=== PATIENT | male | born 1965 | race Caucasian/White ===

== ENCOUNTER 2019-01-03 12:22 | Emergency (ER) | payer OTHER ==
[2019-01-03] MEDS ORDERED: Sodium Chloride 0.9% 10 ML Syringe FLUSH PRN (12:31)
[2019-01-03] MEDS ORDERED: Ondansetron 4 MG/2 ML SDV IVPUSH ONE (12:31)
[2019-01-03] MEDS ORDERED: Sodium Chloride 0.9% 1,000 ML IV ONE ×2 (12:31→13:57)
[2019-01-03] MEDS ORDERED: Sodium Chloride 0.9% 2.5 ML Syringe FLUSH PRN (12:31)
--- NOTE | 2019-01-03 12:34 | EDM.PDOC ---
ED HPI GENERAL MEDICAL PROBLEM - General Chief Complaint: Drug or Alcohol Abuse Stated Complaint: WITHDRAWALS Time Seen by Provider: 01/03/19 12:27 Source of Information: Reports: Patient History Limitations: Reports: No Limitations - History of Present Illness INITIAL COMMENTS - FREE TEXT/NARRATIVE: History of present illness: []Patient arrived to [place] from [place] a week ago and usually buys oxymorphone off the street for chronic neck pain and has run out. He now wishes to get off all opiates. He took his last pill at 7 AM yesterday and now has vomiting and diarrhea. He is requesting to go through detox in order to keep his job. Review of systems: As per history of present illness and below otherwise all systems reviewed and negative. Past medical history: As per history of present illness and as reviewed below otherwise noncontributory. Surgical history: As per history of present illness and as reviewed below otherwise noncontributory. Social history: No reported history of drug or alcohol abuse. Family history: As per history of present illness and as reviewed below otherwise noncontributory. Physical exam: General: Well developed, well nourished in NAD HEENT: Atraumatic, normocephalic, pupils reactive, negative for conjunctival pallor or scleral icterus, mucous membranes moist, throat clear, neck supple, nontender, trachea midline. Lungs: Clear to auscultation, breath sounds equal bilaterally, chest nontender. Heart: S1S2, regular, negative for clicks, rubs, or JVD. Abdomen: NABS, Soft, nondistended, nontender. Negative for masses or hepatosplenomegaly. Negative for costovertebral tenderness. Pelvis: Stable nontender. Genitourinary: Deferred. Rectal: Deferred. Extremities: Atraumatic, negative for cords or calf pain. Neurovascular unremarkable. Neuro: Awake, alert, oriented. Cranial nerves II through XII unremarkable. Cerebellum unremarkable. Motor and sensory unremarkable throughout. Exam nonfocal. Skin:warm and dry Diagnostics: CBC, chemistry, drug screen Therapeutics: IV hydrated, Zofran and Toradol ED Course: Consulted Dr. Greenwood-able to admit for withdrawal Consulted Nelly Canales who will not accept him for suggested that he should go to the methadone clinic in [place] as they do daily intakes. Impression: Opioid withdrawal Prescriptions: Zofran Plan: follow up with Dr. Chisholm Definitive disposition and diagnosis as appropriate pending reevaluation and review of above. Generalized Pain Score (Numeric/FACES): 10 - Related Data Allergies Allergy/AdvReac Type Severity Reaction Status Date / Time No Known Allergies Allergy Verified 01/03/19 12:25 Home Meds: Home Meds Ondansetron [Zofran ODT] 4 mg PO Q6H PRN #20 tab.dis 01/03/19 [Rx] Oxymorphone HCl [Oxymorphone] 200 mg PO DAILY PRN 01/03/19 [History] Sertraline HCl [Zoloft] 150 mg PO DAILY 01/03/19 [History] Past Medical History Musculoskeletal History: Reports: Back Pain, Chronic - Infectious Disease History Infectious Disease History: Reports: None Social & Family History - Family History Family Medical History: Noncontributory - Tobacco Use Smoking Status *Q: Unknown Ever Smoked - Caffeine Use Caffeine Use: Reports: None - Recreational Drug Use Recreational Drug Use: No ED ROS GENERAL - Review of Systems Review Of Systems: See Below ED EXAM, GENERAL - Physical Exam Exam: See Below Course - Vital Signs Last Recorded V/S: Last Vital Signs Temp 95.3 F L 01/03/19 12:26 Pulse 58 L 01/03/19 12:26 Resp 20 01/03/19 12:26 BP 162/81 H 01/03/19 12:26 Pulse Ox 99 01/03/19 12:26 - Orders/Labs/Meds Orders: Active Orders 24 hr Category Date Time Status Sodium Chloride 0.9% [Saline Flush] Med 01/03/19 12:31 Active 10 ml FLUSH ASDIRECTED PRN Sodium Chloride 0.9% [Saline Flush] Med 01/03/19 12:31 Active 2.5 ml FLUSH ASDIRECTED PRN Saline Lock Insert [OM.PC] Stat Oth 01/03/19 12:31 Ordered Medication Orders Sodium Chloride (Saline Flush) 10 ml FLUSH ASDIRECTED PRN PRN Reason: Keep Vein Open Last Admin: 01/03/19 12:41 Dose: 10 ml Sodium Chloride (Saline Flush) 2.5 ml FLUSH ASDIRECTED PRN PRN Reason: Keep Vein Open Last Admin: 01/03/19 12:41 Dose: 2.5 ml Labs: Laboratory Tests 01/03/19 01/03/19 01/03/19 Range/Units 12:32 12:40 12:40 WBC 11.34 H (4.0-11.0) K/uL RBC 5.11 (4.50-5.90) M/uL Hgb 14.8 (13.0-17.0) g/dL Hct 43.3 (38.0-50.0) % MCV 84.7 (80.0-98.0) fL MCH 29.0 (27.0-32.0) pg MCHC 34.2 (31.0-37.0) g/dL RDW Std Deviation 40.7 (28.0-62.0) fl RDW Coeff of Kayden 13 (11.0-15.0) % Plt Count 478 H (150-400) K/uL MPV 10.10 (7.40-12.00) fL Neut % (Auto) 82.7 H (48.0-80.0) % Lymph % (Auto) 10.4 L (16.0-40.0) % [place] % (Auto) 6.0 (0.0-15.0) % Eos % (Auto) 0.4 (0.0-7.0) % Baso % (Auto) 0.5 (0.0-1.5) % Neut # (Auto) 9.4 H (1.4-5.7) K/uL Lymph # (Auto) 1.2 (0.6-2.4) K/uL [place] # (Auto) 0.7 (0.0-0.8) K/uL Eos # (Auto) 0.0 (0.0-0.7) K/uL Baso # (Auto) 0.1 (0.0-0.1) K/uL Nucleated RBC % 0.0 /100WBC Nucleated RBCs # 0 K/uL Sodium 140 (136-148) mmol/L Potassium 3.4 L (3.5-5.1) mmol/L Chloride 101 (98-107) mmol/L Carbon Dioxide 27.2 (21.0-32.0) mmol/L BUN 15 (7.0-18.0) mg/dL Creatinine 1.0 (0.8-1.3) mg/dL Est Cr Clr Drug Dosing 84.45 mL/min Estimated GFR (MDRD) > 60.0 ml/min Glucose 141 H (74-106) mg/dL Calcium 9.4 (8.5-10.1) mg/dL Total Bilirubin 0.6 (0.2-1.0) mg/dL AST 15 (15-37) IU/L ALT 25 (14-63) IU/L Alkaline Phosphatase 133 H (46-116) U/L Total Protein 8.6 H (6.4-8.2) g/dL Albumin 4.0 (3.4-5.0) g/dL Globulin 4.6 H (2.6-4.0) g/dL Albumin/Globulin Ratio 0.9 (0.9-1.6) Urine Opiates Screen NEGATIVE (NEGATIVE) Ur Oxycodone Screen POSITIVE (NEGATIVE) Urine Methadone Screen NEGATIVE (NEGATIVE) Ur Barbiturates Screen NEGATIVE (NEGATIVE) Ur Phencyclidine Scrn NEGATIVE (NEGATIVE) Ur Amphetamine Screen NEGATIVE (NEGATIVE) U Methamphetamines Scrn NEGATIVE (NEGATIVE) U Benzodiazepines Scrn NEGATIVE (NEGATIVE) U Cocaine Metab Screen NEGATIVE (NEGATIVE) U Marijuana (THC) Screen NEGATIVE (NEGATIVE) Meds: Medications Generic Name Dose Route Start Last Admin Trade Name Freq PRN Reason Stop Dose Admin Sodium Chloride 10 ml 01/03/19 12:31 01/03/19 12:41 Saline Flush FLUSH 10 ml ASDIRECTED PRN Administration Keep Vein Open Sodium Chloride 2.5 ml 01/03/19 12:31 01/03/19 12:41 Saline Flush FLUSH 2.5 ml ASDIRECTED PRN Administration Keep Vein Open Discontinued Medications Generic Name Dose Route Start Last Admin Trade Name Freq PRN Reason Stop Dose Admin Sodium Chloride 1,000 mls @ 999 mls/hr 01/03/19 12:31 01/03/19 12:41 Normal Saline IV 01/03/19 13:31 999 mls/hr .Bolus ONE Administration Sodium Chloride 1,000 mls @ 999 mls/hr 01/03/19 13:57 Normal Saline IV 01/03/19 14:57 .Bolus ONE Ketorolac Tromethamine 30 mg 01/03/19 12:45 01/03/19 12:51 Toradol IVPUSH 01/03/19 12:46 30 mg ONETIME ONE Administration Lorazepam 1 mg 01/03/19 13:00 01/03/19 13:15 Ativan IVPUSH 01/03/19 13:01 1 mg ONETIME ONE Administration Ondansetron HCl 4 mg 01/03/19 12:31 01/03/19 12:41 Zofran IVPUSH 01/03/19 12:32 4 mg ONETIME ONE Administration Departure - Departure Time of Disposition: 13:38 Disposition: Home, Self-Care 01 Condition: Good Clinical Impression: Opioid withdrawal - Discharge Information *PRESCRIPTION DRUG MONITORING PROGRAM REVIEWED*: No *COPY OF PRESCRIPTION DRUG MONITORING REPORT IN PATIENT SUDHAKAR: No Prescriptions: Ondansetron [Zofran ODT] 4 mg PO Q6H PRN #20 tab.dis PRN Reason: Nausea Referrals: PCP,None [Primary Care Provider] - Forms: ED Department Discharge Additional Instructions: The following information is given to patients seen in the emergency department who are being discharged to home. This information is to outline your options for follow-up care. We provide all patients seen in our emergency department with a follow-up referral. The need for follow-up, as well as the timing and circumstances, are variable depending upon the specifics of your emergency department visit. If you don't have a primary care physician on staff, we will provide you with a referral. We always advise you to contact your personal physician following an emergency department visit to inform them of the circumstance of the visit and for follow-up with them and/or the need for any referrals to a consulting specialist. The emergency department will also refer you to a specialist when appropriate. This referral assures that you have the opportunity for follow-up care with a specialist. All of these measure are taken in an effort to provide you with optimal care, which includes your follow-up. Under all circumstances we always encourage you to contact your private physician who remains a resource for coordinating your care. When calling for follow-up care, please make the office aware that this follow-up is from your recent emergency room visit. If for any reason you are refused follow-up, please contact the [facility] Emergency Department at and asked to speak to the emergency department charge nurse. Take meds as directed, follow up with your primary care physician, return to ER if symptoms worsen or change. [facility] - Pain Management [address] [place] [id number] - My Orders Last 24 Hours: My Active Orders 01/03/19 12:31 Sodium Chloride 0.9% [Saline Flush] 10 ml FLUSH ASDIRECTED PRN Sodium Chloride 0.9% [Saline Flush] 2.5 ml FLUSH ASDIRECTED PRN Saline Lock Insert [OM.PC] Stat - Assessment/Plan Last 24 Hours: My Active Orders 01/03/19 12:31 Sodium Chloride 0.9% [Saline Flush] 10 ml FLUSH ASDIRECTED PRN Sodium Chloride 0.9% [Saline Flush] 2.5 ml FLUSH ASDIRECTED PRN Saline Lock Insert [OM.PC] Stat
[2019-01-03] MEDS ORDERED: Ketorolac 30 MG/ML SDV IVPUSH ONE (12:45)
[2019-01-03] MEDS ORDERED: LORazepam 2 MG/ML SDV IVPUSH ONE (13:00)
[2019-01-03 13:56] LABS: BLOOD UREA NITROGEN,BUN 15 mg/dL (7.0-18.0); CARBON DIOXIDE,CO2 27.2 mmol/L (21.0-32.0); CHLORIDE,CL 101 mmol/L (98-107); GLUCOSE RANDOM 141 mg/dL (74-106); POTASSIUM,K 3.4 mmol/L (3.5-5.1); SODIUM,NA 140 mmol/L (136-148)
== END 2019-01-03 14:22 | disposition home or self-care (01) ==
LOC: MW.ED 12:22
DX: F11.23 Opioid dependence with withdrawal (principal); Z79.899 Other long term (current) drug therapy
CPT/HCPCS: 36415; 80053; 80305; 85025; 96361; 96374; 96375; 99284; J1885; J2060; J2405; J7040

== ENCOUNTER 2019-02-27 20:33 | Emergency (ER) | payer OTHER ==
[2019-02-27] MEDS ORDERED: Sodium Chloride 0.9% 10 ML Syringe FLUSH PRN (20:42)
[2019-02-27] MEDS ORDERED: Sodium Chloride 0.9% 2.5 ML Syringe FLUSH PRN (20:42)
[2019-02-27] MEDS ORDERED: Aspirin 81 MG Tab.Chew PO ONE (20:42)
[2019-02-27] MEDS ORDERED: Albuterol/Ipratropium 3.0-0.5 MG/3 ML Neb Soln NEB ONE (20:55)
--- NOTE | 2019-02-27 21:05 | EDM.PDOC ---
<Shweta Phillips - Last Filed: 02/27/19 22:37> ED HPI GENERAL MEDICAL PROBLEM - General Chief Complaint: Chest Pain Stated Complaint: SOB, CHEST PAIN Time Seen by Provider: 02/27/19 20:42 - History of Present Illness INITIAL COMMENTS - FREE TEXT/NARRATIVE: This is Dr. Phillips dictating an addendum note as I was asked to follow-up the CTA of the chest and disposition the patient pending those results. The CTA scan results have been reviewed and they are not demonstrating any acute abnormalities. The patient was spoken to by the nurse practitioner and he is comfortable with discharge home and follow-up in the clinic. - Related Data Allergies Allergy/AdvReac Type Severity Reaction Status Date / Time No Known Allergies Allergy Verified 02/27/19 20:39 Home Meds: Home Meds Sertraline HCl [Zoloft] 150 mg PO DAILY 01/03/19 [History] Buprenorphine HCl/Naloxone HCl [Suboxone 4 mg-1 mg Sl Film] 16 mg PO DAILY 02/27 [History] ED ROS GENERAL - Review of Systems Review Of Systems: ROS reveals no pertinent complaints other than HPI. Course - Vital Signs Last Recorded V/S: Last Vital Signs Temp 97.0 F 02/27/19 22:45 Pulse 84 02/27/19 22:45 Resp 18 02/27/19 22:45 BP 118/74 02/27/19 22:45 Pulse Ox 95 02/27/19 22:45 - Orders/Labs/Meds Orders: Active Orders 24 hr Category Date Time Status RT Aerosol Therapy [RC] ASDIRECTED Care 02/27/19 20:55 Active Saline Lock Insert [OM.PC] Stat Oth 02/27/19 20:42 Ordered Labs: Laboratory Tests 02/27/19 02/27/19 02/27/19 Range/Units 20:40 20:40 20:50 WBC 7.98 (4.0-11.0) K/uL RBC 4.32 L (4.50-5.90) M/uL Hgb 12.2 L (13.0-17.0) g/dL Hct 36.4 L (38.0-50.0) % MCV 84.3 (80.0-98.0) fL MCH 28.2 (27.0-32.0) pg MCHC 33.5 (31.0-37.0) g/dL RDW Std Deviation 44.1 (28.0-62.0) fl RDW Coeff of Kayden 14 (11.0-15.0) % Plt Count 319 (150-400) K/uL MPV 9.60 (7.40-12.00) fL Neut % (Auto) 65.7 (48.0-80.0) % Lymph % (Auto) 19.9 (16.0-40.0) % [place] % (Auto) 8.6 (0.0-15.0) % Eos % (Auto) 4.9 (0.0-7.0) % Baso % (Auto) 0.9 (0.0-1.5) % Neut # (Auto) 5.2 (1.4-5.7) K/uL Lymph # (Auto) 1.6 (0.6-2.4) K/uL [place] # (Auto) 0.7 (0.0-0.8) K/uL Eos # (Auto) 0.4 (0.0-0.7) K/uL Baso # (Auto) 0.1 (0.0-0.1) K/uL Nucleated RBC % 0.0 /100WBC Nucleated RBCs # 0 K/uL D-Dimer, Quantitative 0.65 H (0.0-0.50) mg/L FEU Sodium 141 (136-148) mmol/L Potassium 3.6 (3.5-5.1) mmol/L Chloride 104 (98-107) mmol/L Carbon Dioxide 28.9 (21.0-32.0) mmol/L BUN 18 (7.0-18.0) mg/dL Creatinine 1.1 (0.8-1.3) mg/dL Est Cr Clr Drug Dosing 81.77 mL/min Estimated GFR (MDRD) > 60.0 ml/min Glucose 101 (74-106) mg/dL Calcium 8.5 (8.5-10.1) mg/dL Total Bilirubin 0.2 (0.2-1.0) mg/dL AST 20 (15-37) IU/L ALT 34 (14-63) IU/L Alkaline Phosphatase 93 (46-116) U/L Troponin I < 0.050 (0.000-0.056) ng/mL Total Protein 7.4 (6.4-8.2) g/dL Albumin 3.5 (3.4-5.0) g/dL Globulin 3.9 (2.6-4.0) g/dL Albumin/Globulin Ratio 0.9 (0.9-1.6) Meds: Medications Discontinued Medications Generic Name Dose Route Start Last Admin Trade Name Freq PRN Reason Stop Dose Admin Albuterol/Ipratropium 3 ml 02/27/19 20:55 02/27/19 21:07 Duoneb 3.0-0.5 Mg/3 Ml NEB 02/27/19 20:56 3 ml ONETIME ONE Administration Aspirin 324 mg 02/27/19 20:42 02/27/19 20:48 Aspirin PO 02/27/19 20:43 324 mg ONETIME ONE Administration Sodium Chloride 1,000 mls @ 999 mls/hr 02/27/19 21:26 02/27/19 21:31 Normal Saline IV 02/27/19 22:26 999 mls/hr STAT ONE Administration Iopamidol 50 ml 02/27/19 22:11 02/27/19 22:12 Isovue Multipack-370 (76%) IVPUSH 02/27/19 22:12 50 ml ONETIME STA Administration Sodium Chloride 10 ml 02/27/19 20:42 Saline Flush FLUSH ASDIRECTED PRN Keep Vein Open Sodium Chloride 2.5 ml 02/27/19 20:42 Saline Flush FLUSH ASDIRECTED PRN Keep Vein Open Departure - Departure Time of Disposition: 22:37 Disposition: Home, Self-Care 01 Reason for Transfer *Q: Primary PCI Indicated Condition: Good Clinical Impression: Nonspecific chest pain Dyspnea Qualifiers: Dyspnea type: unspecified Qualified Code(s): R06.00 - Dyspnea, unspecified Instructions: Shortness of Breath, Adult, [id number], Nonspecific Chest Pain , [id number] Referrals: PCP,None [Primary Care Provider] - Forms: ED Department Discharge Additional Instructions: The following information is given to patients seen in the emergency department who are being discharged to home. This information is to outline your options for follow-up care. We provide all patients seen in our emergency department with a follow-up referral. The need for follow-up, as well as the timing and circumstances, are variable depending upon the specifics of your emergency department visit. If you don't have a primary care physician on staff, we will provide you with a referral. We always advise you to contact your personal physician following an emergency department visit to inform them of the circumstance of the visit and for follow-up with them and/or the need for any referrals to a consulting specialist. The emergency department will also refer you to a specialist when appropriate. This referral assures that you have the opportunity for follow-up care with a specialist. All of these measure are taken in an effort to provide you with optimal care, which includes your follow-up. Under all circumstances we always encourage you to contact your private physician who remains a resource for coordinating your care. When calling for follow-up care, please make the office aware that this follow-up is from your recent emergency room visit. If for any reason you are refused follow-up, please contact the [facility] Emergency Department at and asked to speak to the emergency department charge nurse. [facility] [address] [place] [id number] [place] [address] 1. Start a Baby Aspirin 81mg once daily 2. Please use Tylenol and/or Ibuprofen as needed for pain and fever management. 3. Please follow up with your primary care provider. Return to the ED as needed as discussed. - My Orders Last 24 Hours: My Active Orders 02/27/19 20:42 Saline Lock Insert [OM.PC] Stat 02/27/19 20:55 RT Aerosol Therapy [RC] ASDIRECTED - Assessment/Plan Last 24 Hours: My Active Orders 02/27/19 20:42 Saline Lock Insert [OM.PC] Stat 02/27/19 20:55 RT Aerosol Therapy [RC] ASDIRECTED <Brenda Franco - Last Filed: 02/28/19 10:02> ED HPI GENERAL MEDICAL PROBLEM - General Source of Information: Reports: Patient History Limitations: Reports: No Limitations - History of Present Illness INITIAL COMMENTS - FREE TEXT/NARRATIVE: HISTORY AND PHYSICAL: History of present illness: Patient is a 53-year-old male who presents to the emergency room with complaints of shortness of breath and chest pain. Patient states approximately 3 weeks ago he was started on Suboxone (for opioid addiction) and around that time started noticing some shortness of breath. He describes it as feeling like he states taking shallow breaths and not able to fully catch his breath per usual. He states nothing makes the symptoms better or worse. Over the past 3 days he has had a generalized midsternal chest pain that does not radiate. He states nothing makes the chest pain better or worse but just "notices it". Patient denies any fever, chills, headache, change in vision, syncope or near syncope. Denies any back pain or cough. Denies any abdominal pain, nausea, vomiting, diarrhea, constipation or dysuria. Has not noted any blood in urine or stool. Patient has been eating and drinking appropriately. Denies any drug or alcohol abuse Review of systems: As per history of present illness and below otherwise all systems reviewed and negative. Past medical history: As per history of present illness and as reviewed below otherwise noncontributory. Surgical history: As per history of present illness and as reviewed below otherwise noncontributory. Social history: See social history for further information Family history: As per history of present illness and as reviewed below otherwise noncontributory. Physical exam: General: Well-developed and well-nourished 53-year-old male. Alert and orientated. Nontoxic appearing and in no acute distress. HEENT: Atraumatic, normocephalic, pupils equal and reactive bilaterally, negative for conjunctival pallor or scleral icterus, mucous membranes moist, nontender, trachea midline. No drooling or trismus noted. No meningeal signs. No hot potato voice noted. Lungs: Clear to auscultation, breath sounds equal bilaterally, chest nontender. Heart: S1S2, regular rate and rhythm without overt murmur Abdomen: Soft, nondistended, nontender. Negative for masses or hepatosplenomegaly. Negative for costovertebral tenderness. Pelvis: Stable nontender. Skin: Intact, warm, dry. No lesions or rashes noted. Extremities: Atraumatic, moves all extremities per self without difficulty or deficits, negative for cords or calf pain. Neurovascular unremarkable. Neuro: Awake, alert, oriented. Cranial nerves II through XII unremarkable. Cerebellum unremarkable. Motor and sensory unremarkable throughout. Exam nonfocal. Notes: Chest x-ray is unremarkable. Lab work is unremarkable with the exception of slightly elevated D.dimer; will do a CT chest. Upon entering the room the patient is asleep. When I awoke him he did appear somewhat anxious. States that he had "an episode where he couldn't catch my breath". Which when I witnessed what he was talking about it appeared that it could be anxiety related. I did discuss with patient the labs, EKG and chest x- ray results and need for CT chest to r/o PE. We discussed admission versus discharged home if his CT is normal. He states he would like to be discharged to home with follow-up with his primary care provider. He states he has not had any chest pain while here. Vital signs remain stable. Waiting for CT of chest results; Dr Phillips will follow. Diagnostics: CBC, CMP, D.Dimer, Troponin, EKG, CXR Therapeutics: IV fluids, ASA, Duo-Neb Impression: Dyspnea Nonspecific chest pain Plan: 1. Start a Baby Aspirin 81mg once daily 2. Please use Tylenol and/or Ibuprofen as needed for pain and fever management. 3. Please follow up with your primary care provider. Return to the ED as needed as discussed. Definitive disposition and diagnosis as appropriate pending reevaluation and review of above. Duration: Day(s):, Week(s): chest Pain Score (Numeric/FACES): 6 Past Medical History Musculoskeletal History: Reports: Back Pain, Chronic Psychiatric History: Reports: Anxiety, Depression - Infectious Disease History Infectious Disease History: Reports: None - Past Surgical History HEENT Surgical History: Reports: Oral Surgery Social & Family History - Family History Family Medical History: Noncontributory - Tobacco Use Smoking Status *Q: Never Smoker - Caffeine Use Caffeine Use: Reports: None - Recreational Drug Use Recreational Drug Use: No ED ROS GENERAL - Review of Systems Review Of Systems: ROS reveals no pertinent complaints other than HPI. ED EXAM, GENERAL - Physical Exam Exam: See Below (See dictation)
[2019-02-27 21:16] LABS: BLOOD UREA NITROGEN,BUN 18 mg/dL (7.0-18.0); CARBON DIOXIDE,CO2 28.9 mmol/L (21.0-32.0); CHLORIDE,CL 104 mmol/L (98-107); GLUCOSE RANDOM 101 mg/dL (74-106); POTASSIUM,K 3.6 mmol/L (3.5-5.1); SODIUM,NA 141 mmol/L (136-148)
--- NOTE | 2019-02-27 21:23 | CR ---
Indication: Chest pain. Shortness breath. Technique: A single AP portable view of the chest was obtained. Comparison: None Findings: The heart is normal in size. The lungs are clear. No infiltrate, pleural effusion, or pneumothorax is identified. Impression: No acute cardiopulmonary process. Dictated by Lina Powers MD @ Feb 27 2019 9:21PM Signed by Dr. Lina Powers @ Feb 27 2019 9:22PM
[2019-02-27] MEDS ORDERED: Sodium Chloride 0.9% 1,000 ML IV ONE (21:26)
[2019-02-27] MEDS ORDERED: Iopamidol 755 MG/ML 500 ML Multipack Bottle IVPUSH STA (22:11)
--- NOTE | 2019-02-27 22:33 | CT ---
INDICATION: Dyspnea, elevated D-dimer COMPARISON: None TECHNIQUE: Contrast enhanced axial CT imaging through the chest, optimized for assessment of the pulmonary arterial tree. 50 mL Isovue 370 contrast agent was administered intravenously. Sagittal and coronal reconstructions are provided. FINDINGS: There is adequate opacification of the pulmonary arterial tree without evidence of thromboembolism. There is normal caliber of the main pulmonary artery. The heart is normal in size. There is no pericardial effusion. There is normal caliber of the thoracic aorta. There is no mediastinal lymphadenopathy. The lungs are clear. There is no pleural effusion or pneumothorax. The thoracic osseous structures are unremarkable. ACDF changes are noted in the lower cervical spine. No significant abnormality is demonstrated in the visualized upper abdomen. IMPRESSION: No evidence of pulmonary thromboembolism or other acute intrathoracic process. Please note that all CT scans at this facility use dose modulation, iterative reconstruction, and/or weight-based dosing when appropriate to reduce radiation dose to as low as reasonably achievable. Dictated by Jovani Fernandes MD @ Feb 27 2019 10:20PM Signed by Dr. Jovani Fernandes @ Feb 27 2019 10:32PM
== END 2019-02-27 22:45 | disposition home or self-care (01) ==
LOC: MW.ED 20:33
DX: R07.9 Chest pain, unspecified (principal); R06.02 Shortness of breath
CPT/HCPCS: 36415; 71045; 71275; 80053; 84484; 85025; 85379; 93005; 94640; 96360; 99285; A9270; J7040; Q9967; J7620-GY

== ENCOUNTER 2019-03-29 13:36 | Emergency (ER) | payer OTHER ==
--- NOTE | 2019-03-29 14:13 | EDM.PDOC ---
<Margie Lopez - Last Filed: 03/29/19 14:56> ED HPI GENERAL MEDICAL PROBLEM - General Chief Complaint: General Stated Complaint: SWOLLAN FROM THE WAIST DOWN Time Seen by Provider: 03/29/19 14:13 Source of Information: Reports: Patient History Limitations: Reports: No Limitations - History of Present Illness INITIAL COMMENTS - FREE TEXT/NARRATIVE: HISTORY AND PHYSICAL: History of present illness: Patient is a 53-year-old male presents to the ED with complaint lower extremity swelling. He states he is having swelling and pain in both legs for the past few days. He states his skin is very itchy and he is scratching his skin raw. He denies chest pain, shortness of breath, fevers, or chills. Review of systems: As per history of present illness and below otherwise all systems reviewed and negative. Past medical history: As per history of present illness and as reviewed below otherwise noncontributory. Surgical history: As per history of present illness and as reviewed below otherwise noncontributory. Social history: No reported history of drug or alcohol abuse. Family history: As per history of present illness and as reviewed below otherwise noncontributory. Physical exam: General: Patient sitting comfortably in no acute distress and nontoxic appearing HEENT: Atraumatic, normocephalic, pupils reactive, negative for conjunctival pallor or scleral icterus, mucous membranes moist, throat clear, neck supple, nontender, trachea midline. No meningeal signs. Lungs: Clear to auscultation, breath sounds equal bilaterally, chest nontender. Heart: S1S2, regular, negative for clicks, rubs, or overt murmur. Abdomen: Soft, nondistended, nontender. Negative for masses or hepatosplenomegaly. Negative for costovertebral tenderness. No rigidity, rebound , guarding. Pelvis: Stable nontender. Genitourinary: Deferred. Rectal: Deferred. Extremities: Atraumatic, negative for cords or calf pain. Neurovascular unremarkable. Neuro: Awake, alert, oriented. Cranial nerves II through XII unremarkable. Cerebellum unremarkable. Motor and sensory unremarkable throughout. Exam nonfocal. Notes: Diagnostics: [] Therapeutics: [] Prescriptions: Impression: [] Plan: [] Definitive disposition and diagnosis as appropriate pending reevaluation and review of above. lower legs Pain Score (Numeric/FACES): 8 - Related Data Allergies Allergy/AdvReac Type Severity Reaction Status Date / Time No Known Allergies Allergy Verified 03/29/19 13:53 Home Meds: Home Meds Sertraline HCl [Zoloft] 150 mg PO DAILY 01/03/19 [History] Buprenorphine HCl/Naloxone HCl [Suboxone 4 mg-1 mg Sl Film] 16 mg PO DAILY 02/27 [History] Past Medical History - Past Health History Medical/Surgical History: Denies Medical/Surgical History Musculoskeletal History: Reports: Back Pain, Chronic Psychiatric History: Reports: Anxiety, Depression - Infectious Disease History Infectious Disease History: Reports: None - Past Surgical History HEENT Surgical History: Reports: Oral Surgery Social & Family History - Family History Family Medical History: Noncontributory - Tobacco Use Smoking Status *Q: Never Smoker - Caffeine Use Caffeine Use: Reports: None - Recreational Drug Use Recreational Drug Use: No ED ROS GENERAL - Review of Systems Review Of Systems: Comprehensive ROS is negative, except as noted in HPI. ED EXAM, GENERAL - Physical Exam Exam: See Below (see dictation) Course - Vital Signs Last Recorded V/S: Last Vital Signs Temp 97.3 F 03/29/19 13:50 Pulse 86 03/29/19 13:50 Resp 18 03/29/19 13:50 BP 144/84 H 03/29/19 13:50 Pulse Ox 96 03/29/19 13:50 - Orders/Labs/Meds Meds: Medications Discontinued Medications Generic Name Dose Route Start Last Admin Trade Name Freq PRN Reason Stop Dose Admin Enoxaparin Sodium 100 mg 03/29/19 16:57 Lovenox SUBCUT 03/29/19 16:58 ONETIME ONE Departure - Departure Disposition: Home, Self-Care 01 Clinical Impression: Generalized pruritus Deep venous thrombosis Qualifiers: DVT location: lower extremity Affected thrombotic vein of extremity: femoral Chronicity: acute Laterality: right Qualified Code(s): I82.411 - Acute embolism and thrombosis of right femoral vein - Discharge Information Referrals: PCP,Not In Area [Primary Care Provider] - Forms: ED Department Discharge Additional Instructions: The following information is given to patients seen in the emergency department who are being discharged to home. This information is to outline your options for follow-up care. We provide all patients seen in our emergency department with a follow-up referral. The need for follow-up, as well as the timing and circumstances, are variable depending upon the specifics of your emergency department visit. If you don't have a primary care physician on staff, we will provide you with a referral. We always advise you to contact your personal physician following an emergency department visit to inform them of the circumstance of the visit and for follow-up with them and/or the need for any referrals to a consulting specialist. The emergency department will also refer you to a specialist when appropriate. This referral assures that you have the opportunity for follow-up care with a specialist. All of these measure are taken in an effort to provide you with optimal care, which includes your follow-up. Under all circumstances we always encourage you to contact your private physician who remains a resource for coordinating your care. When calling for follow-up care, please make the office aware that this follow-up is from your recent emergency room visit. If for any reason you are refused follow-up, please contact the [facility] Emergency Department at and asked to speak to the emergency department charge nurse. [facility] [address] [place] [id number] [place] [address] 1. Take medication as prescribed. You can use Tylenol as directed for pain and discomfort. 2. Follow-up with your primary care provider as discussed. Given place on the expedited follow-up list with primary care. 3. Return to the ED as needed and as discussed. <Erin Mckinney - Last Filed: 03/29/19 17:09> ED HPI GENERAL MEDICAL PROBLEM - History of Present Illness INITIAL COMMENTS - FREE TEXT/NARRATIVE: I have assumed care of this patient at 15:30 and agree with the above history and physical exam. Notes: I did call and speak to Dr. Zhang, hospitalist associate professor of economics, about starting Eliquis treatment and he does recommend starting Eliquis without bridging with Lovenox. Patient also does express generalized itching so will give Medrol Dosepak. Patient was placed on expedited follow-up list with primary care provider. Prescriptions: Eliquis Medrol dose pack Add to impression: Deep venous thrombosis, right common femoral Generalized Pruritus Plan: 1. Take medication as prescribed. You can use Tylenol as directed for pain and discomfort. 2. Follow-up with your primary care provider as discussed. Given place on the expedited follow-up list with primary care. 3. Return to the ED as needed and as discussed. Departure - Departure Time of Disposition: 17:06
--- NOTE | 2019-03-29 16:51 | US ---
INDICATION: Bilateral leg swelling and pain TECHNIQUE: : Ultrasound venous duplex lower extremity bilateral. Compression venous exam was performed using bass-scale, color Doppler, and spectral Doppler imaging. COMPARISON: None available FINDINGS: The right common femoral vein demonstrates incomplete compressibility, compatible with a partial DVT, although the industrial machine system technician reports difficulty compressing due to pain. The right superficial femoral vein and popliteal vein are patent and compressible. The visualized portions of the right posterior and anterior tibial veins are patent on Doppler color evaluation, however compressibility is not evaluated. There are curvilinear hypoechoic areas in the region of the compressed left common femoral vein and distal left superficial femoral vein, reported to be artifactual, extravascular by the rooter operator. The proximal to mid left superficial femoral vein and popliteal vein are patent and appear compressible. The visualized portions of the left posterior and anterior tibial veins are patent on Doppler color evaluation, however compressibility is not evaluated. There are several shotty lymph nodes in the right inguinal region. IMPRESSION: Findings compatible with a partial DVT in the right common femoral vein, although there was reported technical difficulty in regional compression due to pain. Hypoechoic foci in the region of the compressed left common femoral and distal superficial femoral veins are reported to be artifactual, extravascular, by the rooter operator, however follow-up evaluation should be considered to re-evaluate these regions and exclude partial DVTs. Shotty right inguinal lymph nodes. The findings were discussed with CHON Mckinney, by phone, on 03/29/2019 at 4:40 p.m.. Dictated by Jose Drummond MD @ 03/29/2019 4:49:33 PM Dictated by: Jose Drummond MD @ 03/29/2019 16:49:40 (Electronically Signed)
[2019-03-29] MEDS ORDERED: Enoxaparin 100 MG/1 ML Syringe SUBCUT ONE (16:57)
== END 2019-03-29 17:35 | disposition home or self-care (01) ==
LOC: MW.ED 13:36
DX: I82.411 Acute embolism and thrombosis of right femoral vein (principal); L29.9 Pruritus, unspecified
CPT/HCPCS: 93970; 93970-26; 99283-25

== ENCOUNTER 2019-09-29 03:50 | Emergency (ER) | payer OTHER ==
[2019-09-29] MEDS ORDERED: Sodium Chloride 0.9% 2.5 ML Syringe FLUSH PRN ×2 (04:08)
--- NOTE | 2019-09-29 04:15 | EDM.PDOC ---
ED HPI GENERAL MEDICAL PROBLEM - General Chief Complaint: Cardiovascular Problem Stated Complaint: LEGS SWOLLEN Time Seen by Provider: 09/29/19 04:45 - History of Present Illness INITIAL COMMENTS - FREE TEXT/NARRATIVE: History of present illness: [Patient presents with a variety of complaints but essentially he is here because his legs have been swelling for the past several weeks he states that he has been sleepwalking at home and that he fell while sleepwalking and now has increasing right ankle pain this happened over 24 hours ago. He did not hit his head he denies any loss of consciousness he just fell while sleepwalking. He has increased ankle and foot pain on the right. He states both legs have been swelling but the right swelling more than left he is on Eliquis for previous blood clots he denies any prior medical problems for last February when he developed a blood clot. Also states he has been short of breath lately he denies any headache no other injuries no other concerns no fever no chills no chest pain nothing makes it better or worse] Review of systems: As per history of present illness and below otherwise all systems reviewed and negative. Past medical history: As per history of present illness and as reviewed below otherwise noncontributory. Surgical history: As per history of present illness and as reviewed below otherwise noncontributory. Social history: No reported history of drug or alcohol abuse. Family history: As per history of present illness and as reviewed below otherwise noncontributory. Physical exam: HEENT: Atraumatic, normocephalic, pupils reactive, negative for conjunctival pallor or scleral icterus, mucous membranes moist, throat clear, neck supple, nontender, trachea midline. Lungs: Clear to auscultation, breath sounds equal bilaterally, chest nontender. Heart: S1S2, regular, negative for clicks, rubs, or JVD. Abdomen: Soft, nondistended, nontender. Negative for masses or hepatosplenomegaly. Negative for costovertebral tenderness. Pelvis: Stable nontender. Genitourinary: Deferred. Rectal: Deferred. Extremities: Atraumatic, negative for cords or calf pain. Neurovascular unremarkable. Leg is more edematous than the left leg both have 2+ edema. Good distal pulse motor and sensation are intact Neuro: Awake, alert, oriented. Cranial nerves II through XII unremarkable. Cerebellum unremarkable. Motor and sensory unremarkable throughout. Exam nonfocal. Diagnostics: [] Therapeutics: [] Impression: Leg swelling and ankle pain. [] Plan: Keep the patient for edema as well as obtaining plain x-rays of the ankle and the foot which are painful since his fall. He will then be reassessed [] Definitive disposition and diagnosis as appropriate pending reevaluation and review of above. Right Ankle Pain Score (Numeric/FACES): 9 - Related Data Allergies Allergy/AdvReac Type Severity Reaction Status Date / Time No Known Allergies Allergy Verified 09/29/19 04:08 Home Meds: Home Meds Sertraline HCl [Zoloft] 150 mg PO DAILY 01/03/19 [History] Buprenorphine HCl/Naloxone HCl [Suboxone 4 mg-1 mg Sl Film] 16 mg PO DAILY 02/27 [History] Apixaban [Eliquis] 5 mg PO DAILY 09/29/19 [History] Furosemide 40 mg PO DAILY 09/29/19 [History] hydrOXYzine HCL [hydrOXYzine] 25 mg PO DAILY 09/29/19 [History] Past Medical History - Past Health History Medical/Surgical History: Denies Medical/Surgical History Musculoskeletal History: Reports: Back Pain, Chronic Psychiatric History: Reports: Anxiety, Depression - Infectious Disease History Infectious Disease History: Reports: None - Past Surgical History HEENT Surgical History: Reports: Oral Surgery Social & Family History - Family History Family Medical History: Noncontributory - Caffeine Use Caffeine Use: Reports: None Review of Systems - Review of Systems Review Of Systems: See Below ED EXAM, GENERAL - Physical Exam Exam: See Below EKG INTERPRETATION EKG Interpretation Comments: EKG is normal sinus rhythm with a rate of 86 bpm normal EKG normal axis no ischemia. Read and interpreted by me Course - Vital Signs Text/Narrative:: One-view portable chest read interpreted by me no acute cardiopulmonary pathology is evident. 2 view right foot read and interpreted by me there is a fracture at the base of the fifth proximal phalanx. 3 view right ankle no acute fracture dislocation is appreciated there is some DJD. Patient's troponin is elevated he has not had any chest pain but more dyspnea on exertion with lower extremity swelling. A CTA of his pulmonary arteries was obtained and waiting for read. At 6:30 AM I discussed the case with Dr. Spencer at [place] they will accept the patient feel he needs to be transferred for cardiology consultation with the potential for Adoption Manager. CTA chest is negative for pulmonary embolus per radiology Last Recorded V/S: Last Vital Signs Temp 35.8 C L 09/29/19 05:15 Pulse 85 09/29/19 05:45 Resp 14 09/29/19 05:45 BP 112/58 L 09/29/19 05:45 Pulse Ox 94 L 09/29/19 05:45 - Orders/Labs/Meds Orders: Active Orders 24 hr Category Date Time Status EKG Documentation Completion [RC] STAT Care 09/29/19 04:08 Active Sodium Chloride 0.9% [Saline Flush] Med 09/29/19 04:08 Active 2.5 ml FLUSH ASDIRECTED PRN Sodium Chloride 0.9% [Saline Flush] Med 09/29/19 04:08 Active 2.5 ml FLUSH ASDIRECTED PRN DME for Discharge [COMM] Stat Oth 09/29/19 06:36 Ordered Saline Lock Insert [OM.PC] Stat Ot 09/29/19 04:08 Ordered Medication Orders Sodium Chloride (Saline Flush) 2.5 ml FLUSH ASDIRECTED PRN PRN Reason: Keep Vein Open Last Admin: 09/29/19 05:00 Dose: 2.5 ml Sodium Chloride (Saline Flush) 2.5 ml FLUSH ASDIRECTED PRN PRN Reason: Keep Vein Open Last Admin: 09/29/19 05:00 Dose: 2.5 ml Labs: Laboratory Tests 09/29/19 09/29/19 09/29/19 Range/Units 04:14 04:14 04:14 WBC 8.63 (4.0-11.0) K/uL RBC 4.34 L (4.50-5.90) M/uL Hgb 11.7 L (13.0-17.0) g/dL Hct 36.2 L (38.0-50.0) % MCV 83.4 (80.0-98.0) fL MCH 27.0 (27.0-32.0) pg MCHC 32.3 (31.0-37.0) g/dL RDW Std Deviation 44.0 (28.0-62.0) fl RDW Coeff of Kayden 14 (11.0-15.0) % Plt Count 327 (150-400) K/uL MPV 9.40 (7.40-12.00) fL Neut % (Auto) 62.1 (48.0-80.0) % Lymph % (Auto) 19.0 (16.0-40.0) % Craig % (Auto) 11.8 (0.0-15.0) % Eos % (Auto) 6.5 (0.0-7.0) % Baso % (Auto) 0.6 (0.0-1.5) % Neut # (Auto) 5.4 (1.4-5.7) K/uL Lymph # (Auto) 1.6 (0.6-2.4) K/uL Craig # (Auto) 1.0 H (0.0-0.8) K/uL Eos # (Auto) 0.6 (0.0-0.7) K/uL Baso # (Auto) 0.1 (0.0-0.1) K/uL Nucleated RBC % 0.0 /100WBC Nucleated RBCs # 0 K/uL INR 1.01 D-Dimer, Quantitative 0.66 H (0.0-0.50) mg/L FEU Sodium 138 (136-148) mmol/L Potassium 3.9 (3.5-5.1) mmol/L Chloride 100 (98-107) mmol/L Carbon Dioxide 28.8 (21.0-32.0) mmol/L BUN 25 H (7.0-18.0) mg/dL Creatinine 1.2 (0.8-1.3) mg/dL Est Cr Clr Drug Dosing 74.95 mL/min Estimated GFR (MDRD) > 60.0 ml/min Glucose 131 H (74-106) mg/dL Calcium 8.5 (8.5-10.1) mg/dL Total Bilirubin 0.3 (0.2-1.0) mg/dL AST 36 (15-37) IU/L ALT 72 H (14-63) IU/L Alkaline Phosphatase 110 (46-116) U/L Troponin I 0.072 H* (0.000-0.056) ng/mL B-Natriuretic Peptide (<100) PG/ML Total Protein 7.9 (6.4-8.2) g/dL Albumin 3.7 (3.4-5.0) g/dL Globulin 4.2 H (2.6-4.0) g/dL Albumin/Globulin Ratio 0.9 (0.9-1.6) 09/29/19 Range/Units 04:14 WBC (4.0-11.0) K/uL RBC (4.50-5.90) M/uL Hgb (13.0-17.0) g/dL Hct (38.0-50.0) % MCV (80.0-98.0) fL MCH (27.0-32.0) pg MCHC (31.0-37.0) g/dL RDW Std Deviation (28.0-62.0) fl RDW Coeff of Kayden (11.0-15.0) % Plt Count (150-400) K/uL MPV (7.40-12.00) fL Neut % (Auto) (48.0-80.0) % Lymph % (Auto) (16.0-40.0) % Craig % (Auto) (0.0-15.0) % Eos % (Auto) (0.0-7.0) % Baso % (Auto) (0.0-1.5) % Neut # (Auto) (1.4-5.7) K/uL Lymph # (Auto) (0.6-2.4) K/uL Craig # (Auto) (0.0-0.8) K/uL Eos # (Auto) (0.0-0.7) K/uL Baso # (Auto) (0.0-0.1) K/uL Nucleated RBC % /100WBC Nucleated RBCs # K/uL INR D-Dimer, Quantitative (0.0-0.50) mg/L FEU Sodium (136-148) mmol/L Potassium (3.5-5.1) mmol/L Chloride (98-107) mmol/L Carbon Dioxide (21.0-32.0) mmol/L BUN (7.0-18.0) mg/dL Creatinine (0.8-1.3) mg/dL Est Cr Clr Drug Dosing mL/min Estimated GFR (MDRD) ml/min Glucose (74-106) mg/dL Calcium (8.5-10.1) mg/dL Total Bilirubin (0.2-1.0) mg/dL AST (15-37) IU/L ALT (14-63) IU/L Alkaline Phosphatase (46-116) U/L Troponin I (0.000-0.056) ng/mL B-Natriuretic Peptide < 2 (<100) PG/ML Total Protein (6.4-8.2) g/dL Albumin (3.4-5.0) g/dL Globulin (2.6-4.0) g/dL Albumin/Globulin Ratio (0.9-1.6) Meds: Medications Generic Name Dose Route Start Last Admin Trade Name Freq PRN Reason Stop Dose Admin Sodium Chloride 2.5 ml 09/29/19 04:08 09/29/19 05:00 Saline Flush FLUSH 2.5 ml ASDIRECTED PRN Administration Keep Vein Open Sodium Chloride 2.5 ml 09/29/19 04:08 09/29/19 05:00 Saline Flush FLUSH 2.5 ml ASDIRECTED PRN Administration Keep Vein Open Discontinued Medications Generic Name Dose Route Start Last Admin Trade Name Freq PRN Reason Stop Dose Admin Aspirin 324 mg 09/29/19 04:50 09/29/19 05:00 Aspirin PO 09/29/19 04:51 324 mg ONETIME ONE Administration Iopamidol 90 ml 09/29/19 05:57 09/29/19 05:57 Isovue-370 (76%) IVPUSH 09/29/19 05:58 90 ml ONETIME ONE Administration Departure - Departure Time of Disposition: 06:30 Disposition: DC/Tfer to Acute Hospital 02 Condition: Fair Clinical Impression: Non-STEMI (non-ST elevated myocardial infarction) - Discharge Information *PRESCRIPTION DRUG MONITORING PROGRAM REVIEWED*: Not Applicable *COPY OF PRESCRIPTION DRUG MONITORING REPORT IN PATIENT SUDHAKAR: Not Applicable Instructions: Shortness of Breath, Adult, [id number] Referrals: Tori Farfan NP [Primary Care Provider] - Forms: ED Department Discharge Sepsis Event Note - Evaluation Sepsis Screening Result: No Definite Risk - Focused Exam Vital Signs: Vital Signs Temp Pulse Resp BP Pulse Ox 09/29/19 05:45 85 14 112/58 L 94 L 09/29/19 05:15 35.8 C L 82 14 126/61 95 09/29/19 05:00 35.9 C L 84 15 139/65 93 L 09/29/19 04:45 35.8 C L 88 19 139/65 93 L 09/29/19 04:30 35.8 C L 86 19 130/80 95 09/29/19 04:15 35.6 C L 96 21 H 130/80 94 L 09/29/19 04:00 35.6 C L 97 20 153/88 H 95 Date Exam was Performed: 09/29/19 Time Exam was Performed: 06:44 - My Orders Last 24 Hours: My Active Orders 09/29/19 04:08 EKG Documentation Completion [RC] STAT Sodium Chloride 0.9% [Saline Flush] 2.5 ml FLUSH ASDIRECTED PRN Sodium Chloride 0.9% [Saline Flush] 2.5 ml FLUSH ASDIRECTED PRN Saline Lock Insert [OM.PC] Stat 09/29/19 06:36 DME for Discharge [COMM] Stat - Assessment/Plan Last 24 Hours: My Active Orders 09/29/19 04:08 EKG Documentation Completion [RC] STAT Sodium Chloride 0.9% [Saline Flush] 2.5 ml FLUSH ASDIRECTED PRN Sodium Chloride 0.9% [Saline Flush] 2.5 ml FLUSH ASDIRECTED PRN Saline Lock Insert [OM.PC] Stat 09/29/19 06:36 DME for Discharge [COMM] Stat
[2019-09-29 04:47] LABS: BLOOD UREA NITROGEN,BUN 25 mg/dL (7.0-18.0); CARBON DIOXIDE,CO2 28.8 mmol/L (21.0-32.0); CHLORIDE,CL 100 mmol/L (98-107); GLUCOSE RANDOM 131 mg/dL (74-106); POTASSIUM,K 3.9 mmol/L (3.5-5.1); SODIUM,NA 138 mmol/L (136-148)
[2019-09-29] MEDS ORDERED: Aspirin 81 MG Tab.Chew PO ONE (04:50)
--- NOTE | 2019-09-29 04:50 | CR ---
INDICATION: Shortness of breath TECHNIQUE: Chest 1 view COMPARISON: None FINDINGS: Cardiovascular and mediastinum: Heart size and vasculature are normal in caliber and appearance. Lungs and pleural spaces: Lungs are clear. No sign of infiltrate or mass. No sign of pleural effusion. No pneumothorax. Bones and soft tissues: No significant findings. IMPRESSION: Unremarkable single view chest. Dictated by Roderick Finch MD @ Sep 29 2019 4:49AM Signed by Dr. Roderick Finch @ Sep 29 2019 4:50AM
--- NOTE | 2019-09-29 04:52 | CR ---
Indication: Pain Technique: Three views Comparison: None Findings: Bones: No evidence of fracture. Ossicle adjacent to the medial malleolus. Joint spaces: Unremarkable. Soft tissues: Prominent diffuse soft tissue swelling. Dictated by Roderick Finch MD @ Sep 29 2019 4:50AM Signed by Dr. Roderick Finch @ Sep 29 2019 4:51AM
--- NOTE | 2019-09-29 04:56 | CR ---
Indication: Pain Technique: Two views Comparison: None Findings: Bones: There is an oblique articular fracture at the base of the proximal phalanx right 5th digit. There is mild comminution with 3 millimeters distraction. Joint spaces: No dislocation. Soft tissues: Prominent diffuse soft tissue swelling. Dictated by Roderick Finch MD @ Sep 29 2019 4:51AM Signed by Dr. Roderick Finch @ Sep 29 2019 4:55AM
[2019-09-29] MEDS ORDERED: Iopamidol 755 Mg/ML 100 ML Bottle IVPUSH ONE (05:57)
--- NOTE | 2019-09-29 06:37 | CT ---
INDICATION: Shortness of breath and swelling in right leg. History of deep venous thrombosis. TECHNIQUE: CT chest PE was acquired with 90 cc Isovue 370 intravenous contrast. COMPARISON: Chest CTA 02/27/2019 FINDINGS: Heart and vasculature: Contrast opacification of the pulmonary arterial tree is adequate. No sign of pulmonary embolism. Thoracic aorta is normal in caliber. No pericardial effusion. Lungs and pleural: Mild apical pleural thickening. Minimal mosaic attenuation pattern. Lymph nodes/mediastinum: No mediastinal, hilar, or axillary adenopathy. Thyroid gland is normal. Chest wall: No masses. Upper abdomen: Mild pancreatic atrophy. Bones: Status post lower cervical spine fusion. IMPRESSION: 1. No evidence of pulmonary embolus. 2. Minimal mosaic attenuation pattern, possibly small airways disease. Please note that all CT scans at this facility use dose modulation, iterative reconstruction, and/or weight-based dosing when appropriate to reduce radiation dose to as low as reasonably achievable. Dictated by Roderick Finch MD @ Sep 29 2019 6:30AM Signed by Dr. Roderick Finch @ Sep 29 2019 6:37AM
== END 2019-09-29 07:25 ==
LOC: MW.ED 03:50
DX: I21.4 Non-ST elevation (NSTEMI) myocardial infarction (principal); M79.89 Other specified soft tissue disorders; M25.571 Pain in right ankle and joints of right foot; F41.9 Anxiety disorder, unspecified; F32.9 Major depressive disorder, single episode, unspecified; Z79.899 Other long term (current) drug therapy
CPT/HCPCS: 36415; 71045; 71275; 73610; 73620; 80053; 83880; 84484; 85025; 85379; 85610; 93005; 99285; A9270; Q9967; 99284